=== PATIENT | female | born 1965 | race Caucasian/White ===

== ENCOUNTER 2016-11-04 16:27 | Emergency (ER) | payer OTHER ==
[2016-11-04 17:11] LABS: BASOPHILS % 0.4 (0.0-1.5); MEAN CORPUSCULAR HEMOGLOBIN 31.6 pg (28.0-34.0); MEAN CORPUSCULAR VOLUME 93.2 fl (80.0-100.0); MONOCYTES % 4.8 % (0.0-11.0); NEUTROPHILS # 5.2 # k/uL (1.4-7.7)
--- NOTE | 2016-11-04 17:16 | ED Physician Documentation ---
General Adult - HISTORIAN Historian: patient - HPI Stated Complaint: headache and dizziness Chief Complaint: General Adult Further Comments: yes (51 year old female patient presents with complaints of worse headache of her life for 3 days. Patient states she was in a hot shower 3 days, bent over and has had a severe headache since that time. Patient has used excedrin and "a pain pill" with no relief. Rates pain 10/10, c/o photophobia, denies nausea. Patient concerned she has a aneurysm.) - ROS CONST: no problems EYES/ENT: none CVS/RESP: none GI/: none MS/SKIN/LYMPH: neck pain, joint pain. denies: leg swelling, ankle swelling NEURO/PSYCH: headache, dizziness, anxiety. denies: difficulty walking, difficulty with speech, depression - PAST HX Past History: other (depression, chronic neck pain) Allergies/Adverse Reactions: Allergies Allergy/AdvReac Type Severity Reaction Status Date / Time amoxicillin [Amoxicillin] Allergy Severe Face Verified 11/04/16 16:51 Swelling - SOCIAL HX Smoking History: cigarettes - FAMILY HX Family History: No - REVIEWED ASSESSMENTS Nursing Assessment Reviewed: Yes Vitals Reviewed: Yes Progress - Progress Progress: No UDS available at [facility] at this time. Reviewed CT and lab results with patient and . Reassurance that she did not have tumor or acute bleed. Will treat for migraine with imitrex. Patient sitting up, smiling after Imitrex subq. States she feels much better. ED Results Lab/Radiology - Lab Results Lab Results: Lab Results 11/04/16 17:05 WBC 9.00 K/ul K/ul (4.00-12.00) RBC 5.20 M/ul M/ul (3.90-5.20) Hgb 16.4 g/dL H g/dL (12.0-16.0) Hct 48.4 % H % (34.5-46.5) MCV 93.2 fl fl (80.0-100.0) MCH 31.6 pg pg (28.0-34.0) MCHC 33.9 g/dL g/dL (30.0-36.0) RDW 13.5 % % (11.3-14.3) Plt Count 220 K/mm3 K/mm3 (130-400) Neut % (Auto) 58.2 % % (39.0-79.0) Lymph % (Auto) 34.5 % % (16.0-50.0) Emery % (Auto) 4.8 % % (0.0-11.0) Eos % (Auto) 1.0 % % (0.0-6.8) Baso % (Auto) 0.4 (0.0-1.5) Neut # (Auto) 5.2 # k/uL # k/uL (1.4-7.7) Lymph # (Auto) 3.1 # k/uL # k/uL (0.6-4.0) Emery # (Auto) 0.4 # k/uL # k/uL (0.0-0.9) Eos # (Auto) 0.1 # k/uL # k/uL (0.0-0.6) Baso # (Auto) 0.0 # k/uL # k/uL (0.0-0.5) Reactive Lymphs % 1.1 % % (0.0-5.0) Reactive Lymphs # 0.1 # k/uL # k/uL (0.0-0.8) - Radiology Radiology Impressions: Examination: CT head without contrast History: Headache Comparison exam: None available Technique: Noncontrast head CT protocol. Findings: Ventricles and sulci are appropriate for patient age. Cerebrocerebellar parenchyma demonstrates normal attenuation. No evidence for parenchymal hemorrhage. No evidence for mass or mass effect. No midline shift. No extra axial fluid collections. Partial visualization of the paranasal sinuses , mastoid air cells, orbits, skull and scalp without gross regularity. Streak artifact from dental hardware. Impression: No acute parenchymal process. No hemorrhage. Electronically signed on Nov 04, 2016 5:28:30 PM CDT by: Avery Irene - Orders Orders: ED Orders Category Date Time Status Continuous EKG monitoring Q30M Care 11/04/16 16:43 Ordered Continuous Pulse Oximetry Q30M Care 11/04/16 16:[address] IV Lock 1T Care 11/04/16 16:[address] BRAIN W/O CONTRAST Stat Exams 11/04/16 Ordered CBC/PLATELET/DIFF Stat Lab 11/04/16 16:43 Ordered CMP Stat Lab 11/04/16 16:43 Ordered UA W/MICRO IF INDICATED Stat Lab 11/04/16 16:43 Ordered General Adult Physical Exam - PHYSICAL EXAM GENERAL APPEARANCE: anxious EENT: eye inspection normal, NIMO NECK: normal inspection, stiff neck (tenderness with lateral palpation bilaterally, no midline tenderness. 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
[2016-11-04 17:23] LABS: APPEARANCE,URINE Clear (CLEAR); COLOR,URINE Yellow (YELLOW); OCCULT BLOOD,URINE 2+ (NEGATIVE); UROBILINOGEN URINE 0.2 Eu (0.2-1.0)
[2016-11-04 17:27] LABS: eGFR (African) > 60; eGFR (Non-African) > 60
[2016-11-04 17:31] LABS: AMORPHOUS SEDIMENT,UR FEW (NEGATIVE)
[2016-11-04] MEDS ORDERED: KETOROLAC TROMETHAMINE 30 MG/1ML VIAL IVP ONE (17:50)
[2016-11-04] MEDS ORDERED: SUMAtriptan SUCCINATE 6 MG/0.5 ML VIAL SQ ONE (17:50)
[2016-11-04 18:39] VITALS: BP 127/94
--- NOTE | 2016-11-04 21:02 | Diagnostic Imaging Report ---
SHONDA GRANT (MEÑO) - ER~ [facility] [address] [facility] [address] [place] [address]. [phone] ~ ~ ~ ~ Report Submission Date: Nov 04, 2016 5:28:30 PM CDT Patient ~ Study Name: SITA KIRBY ~ Date: Nov 04, 2016 5:09:39 PM CDT ~ Modality Type: CT\SR Gender: F ~ Description: CT BRAIN W/O CONTRAST : 63 ~ Institution: [facility] Physician: SHONDA GRANT) - [place] ~ ~ ~ ~ Examination: CT head without contrast History: Headache Comparison exam: None available Technique: Noncontrast head CT protocol. Findings: Ventricles and sulci are appropriate for patient age. Cerebrocerebellar parenchyma demonstrates normal attenuation. No evidence for parenchymal hemorrhage. No evidence for mass or mass effect. No midline shift. No extra axial fluid collections. Partial visualization of the paranasal sinuses , mastoid air cells, orbits, skull and scalp without gross regularity. Streak artifact from dental hardware. Impression: No acute parenchymal process. No hemorrhage. ~ Electronically signed on Nov 04, 2016 5:28:30 PM CDT by: Avery HERCULES
== END 2016-11-04 18:36 | disposition home or self-care (01) ==
LOC: ED 16:27
DX: G43.009 Migraine without aura, not intractable, without status migrainosus (principal)
CPT/HCPCS: 70450; 80053; 81002; 85025; J1885; J3030; 96374; 99283; S1016

== ENCOUNTER 2017-10-10 16:01 | Emergency (ER) | payer SELFPAY ==
[2017-10-10] MEDS ORDERED: ORPHENADRINE CITRATE 60 MG/2ML IM ONE (16:14)
[2017-10-10] MEDS ORDERED: KETOROLAC TROMETHAMINE 60 MG/2 ML VIAL IM ONE (16:14)
--- NOTE | 2017-10-10 16:19 | ED Physician Documentation ---
Upper Back Injury/Pain - HISTORIAN Historian: patient, spouse - HPI Stated Complaint: BACK PAIN Chief Complaint: Upper Back Injury/ Pain Additional Information: Patient arrives with spouse to ER with c/o thoracic back pain that started one month ago- [facility] with the last episode being 3 days ago. She states they put her on prednisone but says its not helping. The visit prior they advised her to take Naproxen and Flexeril- she has not taken flexeril as directed. She has not tried to schedule appt. with PCP. She stated that x-rays were done at the [facility] (will have patient sign release and get treatment done at the [facility] Patient is lying supine in bed flat. Onset: other (one month ago) Duration: continues in ED Recent Injury: No Context: other (chronic pain) Where: home (started at home) Other Injuries: denies: neck, head Severity: severe (pt states severe) Quality: sharp Front/Back of Body, Lg (Color): 1 - thoracic pain Associated Symptoms: numbness (to left leg), tingling. denies: fever, chills Exacerbated By: sitting position, movement of trunk Relieved By: nothing - ROS NEURO/PSYCH: denies: difficulty with speech EYES/ENT: none CVS/RESP: none CONST: no problems GI/: denies: nausea, vomiting MS/SKIN/LYMPH: back pain - PAST HX Past History: arthritis, back pain Surgeries/Procedures: back surgery, other (hysterectomy) Allergies/Adverse Reactions: Allergies Allergy/AdvReac Type Severity Reaction Status Date / Time amoxicillin [Amoxicillin] Allergy Severe Face Verified 10/10/17 16:13 Swelling Home Medications: Ambulatory Orders Medication Instructions Recorded Citalopram Hydrobromide 40 mg D 10/10/17 [Citalopram HBr] Cyclobenzaprine HCl [Flexeril] 5 mg PO D 10/10/17 - SOCIAL HX Smoking History: cigarettes, greater than 1 pack/day Alcohol Use: none Drug Use: none - FAMILY HX Family History: none - VITAL SIGNS Vital Signs: Vital Signs Temp Pulse Resp BP Pulse Ox 97.6 F 87 24 158/103 10/10/17 16:08 10/10/17 16:08 10/10/17 16:08 10/10/17 16:08 - REVIEWED ASSESSMENTS Nursing Assessment Reviewed: Yes Vitals Reviewed: Yes Progress - Results/Orders Results/Orders: Patient feeling much better after immunizations and is resting comfortably. She is happy with care and feels that Bucklin will help and will follow up as instructed. ED Results Lab/Radiology - Orders Orders: ED Orders Category Date Time Status Ketorolac Tromethamine [Toradol] Med 10/10/17 16:14 Discontinued 60 mg IM NOW ONE Orphenadrine Citrate [Norflex] Med 10/10/17 16:14 Discontinued 60 mg IM NOW ONE Upper Back Injury Physical Ex - Physical Exam General Appearance: alert, moderate distress EENT: nml ENT inspection Neck: nml inspection, non-tender Back: painless ROM, vertebral point-tendernes Respiratory: breath sounds nml CVS: heart sounds nml, bilateral pulses nml Abdomen: non-tender, nml bowel sounds Skin: warm/dry, normal color Extremities: normal range of motion, no evidence of injury Neuro/Psych: oriented x3, CN's nml as tested, sensation nml Discharge Clincal Impression: Thoracic back pain Referrals: Maritza Monterroso MD [Primary Care Provider] - 2 Days Additional Instructions: Continue with aftercare from [facility] 1. Naproxen 500 mg twice a day 2. Flexeril twice a day for muscle spasm 3. Alternate Heat/Cold 4. Take Bucklin for "Breakthrough Pain" only 5. Call Primary Care Provider Wednesday for follow up 6. Follow up with Ortho spine as instructed by [facility]. Condition: Good Disposition: 01 HOME, SELF-CARE Decision to Admit: NO Decision Time: 17:13
[2017-10-10 17:17] VITALS: BP 137/89
== END 2017-10-10 17:17 | disposition home or self-care (01) ==
LOC: ED 16:01
DX: M54.6 Pain in thoracic spine (principal)
CPT/HCPCS: J1885; J2360; 96372; 99284

== ENCOUNTER 2017-12-22 19:46 | Emergency (ER) | payer OTHER ==
--- NOTE | 2017-12-22 20:14 | ED Physician Documentation ---
General Adult - HISTORIAN Historian: patient, spouse - HPI Stated Complaint: trouble with catheter Chief Complaint: General Adult Onset: hours Timing: still present Further Comments: yes (Pt is a 52 yo female with renal cell cancer on multiple pain meds and chemotherapy med. Pt's indwelling catheter was not draining earlier today. Pt usually has cath changed q 2 weeks by home health nurses. Today home health nurses suspected an infection, and the cath was not draining.) - ROS CONST: no problems EYES/ENT: none CVS/RESP: none GI/: other (difficulties with parry cath) MS/SKIN/LYMPH: none - PAST HX Past History: other (renal cell cancer, depression) Surgeries/Procedures: other (ortho surgery) Allergies/Adverse Reactions: Allergies Allergy/AdvReac Type Severity Reaction Status Date / Time amoxicillin [Amoxicillin] Allergy Severe Face Verified 12/22/17 20:12 Swelling sulfamethoxazole AdvReac Nausea/Vomi Verified 12/22/17 20:12 [From ] ting trimethoprim [From ] AdvReac Nausea/Vomi Verified 12/22/17 20:12 ting Home Medications: Ambulatory Orders Medication Instructions Recorded Cyclobenzaprine HCl [Flexeril] 5 mg PO D 10/10/17 Ciprofloxacin HCl [Cipro] 500 mg PO BID #20 tablet 12/22/17 Dronabinol [Marinol] 2.5 mg PO PRN PRN 12/22/17 Morphine Sulfate [Morphine Sulfate 10 mg PO Q3 PRN 12/22/17 ER] fentaNYL 12 MCG [Duragesic] 1 each TD Q72 MDD 75mcg 12/22/17 - SOCIAL HX Smoking History: cigarettes - FAMILY HX Family History: No (unk) - VITAL SIGNS Vital Signs: Vital Signs Temp Pulse Resp BP Pulse Ox 137/89 10/10/17 17:15 - REVIEWED ASSESSMENTS Nursing Assessment Reviewed: Yes Vitals Reviewed: Yes Progress - Progress Progress: change parry cath (to larger bore cath) UTI Rx Ciprofloxaxin 500 mg. Take one every 12 hours for 10 days. 1st dose in ER Follow up primary provider. General Adult Physical Exam - PHYSICAL EXAM GENERAL APPEARANCE: mild distress EENT: pharynx normal NECK: normal inspection, supple RESPIRATORY: no resp distress, chest non-tender, breath sounds normal CVS: reg rate & rhythm, heart sounds normal ABDOMEN: soft, no organomegaly, normal bowel sounds BACK: normal inspection, no CVA tenderness SKIN: warm/dry, normal color EXTREMITIES: non-tender, no evidence of injury NEURO: oriented X3, motor nml, sensation nml Discharge Clincal Impression: UTI, catheter problem Prescriptions: Ciprofloxacin HCl [Cipro] 500 mg PO BID #20 tablet Referrals: Maritza Monterroso MD [Primary Care Provider] - Condition: Stable Disposition: 01 HOME, SELF-CARE Decision to Admit: NO Decision Time: 22:28
[2017-12-22] MEDS: CIPROFLOXACIN HCL 500 MG TABLET PO ONE (22:30)
[2017-12-22] MEDS: LEVOFLOXACIN 500 MG TABLET ONE (22:31)
[2017-12-22] MEDS: LEVOFLOXACIN 500 MG TABLET PO ONE (22:31)
[2017-12-22 22:37] VITALS: BP 134/71
[2017-12-23 08:33] LABS: APPEARANCE,URINE CLOUDY (CLEAR); COLOR,URINE YELLOW (YELLOW)
[2017-12-23 08:34] LABS: OCCULT BLOOD,URINE 3+ (NEGATIVE); PH URINE 7.5 (5.0 - 8.0); UROBILINOGEN URINE 0.2 Eu (0.2-1.0)
== END 2017-12-22 22:36 | disposition home or self-care (01) ==
LOC: ED 19:46
DX: N39.0 Urinary tract infection, site not specified (principal); T83.018A Breakdown (mechanical) of other urinary catheter, initial encounter; X58.XXXA Exposure to other specified factors, initial encounter; Y92.9 Unspecified place or not applicable; Y93.9 Activity, unspecified; Y99.9 Unspecified external cause status
CPT/HCPCS: 51702; 81002; 87086; 99284; J7030

== ENCOUNTER 2018-03-09 13:56 | Emergency (ER) | payer OTHER ==
[2018-03-09 14:14] VITALS: BP 145/95
[2018-03-09] MEDS: 0.9 % SODIUM CHLORIDE 1,000 ML IV ONE (14:15)
[2018-03-09] MEDS: PROMETHAZINE HCL 25 MG in 0.9 % SODIUM CHLORIDE 50 ML IV ONE (14:15)
--- NOTE | 2018-03-09 14:30 | ED Physician Documentation ---
General Adult - HISTORIAN Historian: patient, spouse - HPI Stated Complaint: Emesis Chief Complaint: General Adult Additional Information: Patient with advanced r4enal cell cancer says she has been vomiting several times a day for 2-4 months. Started Votrient for RCC [address] Najera, [facility] oncology, 2 weeks ago and she was prescribed oral liquid for acid reflux. Has zofran tabs at home that do nto help her nausea. She has been retching and vomiting several times a day for the last two street. Last normal bowel movement yesterday or today. Says she hasn't eaten more than a half sandwich a day for months. Comes to ER in hopes we can stop vomiting. She is not sure when she is to see Dr. Najera again. No fever. Indwelling parry catheter. Has not been taking Marinol tabs for 2-3 months as they made her hungry; the more she ate, the more she threw up. No other modifying factors or associated events. - ROS CONST: denies: fever - PAST HX Past History: other (RCC) Surgeries/Procedures: hysterectomy, other (orthopedic; resection spinal cord tumor) Allergies/Adverse Reactions: Allergies Allergy/AdvReac Type Severity Reaction Status Date / Time amoxicillin [Amoxicillin] Allergy Severe Face Verified 03/09/18 14:15 Swelling sulfamethoxazole AdvReac Nausea/Vomi Verified 03/09/18 14:15 [From ] ting trimethoprim [From ] AdvReac Nausea/Vomi Verified 03/09/18 14:15 ting Home Medications: Ambulatory Orders Medication Instructions Recorded Cyclobenzaprine HCl [Flexeril] 5 mg PO D 10/10/17 Morphine Sulfate [Morphine Sulfate 10 mg PO Q3 PRN 12/22/17 ER] fentaNYL 12 MCG [Duragesic] 1 each TD Q72 MDD 75mcg 12/22/17 - SOCIAL HX Smoking History: cigarettes - FAMILY HX Family History: No - VITAL SIGNS Vital Signs: Vital Signs Temp Pulse Resp BP Pulse Ox 96.8 F L 98 H 15 145/95 96 03/09/18 14:05 03/09/18 14:05 03/09/18 14:05 03/09/18 14:05 03/09/18 14:05 - REVIEWED ASSESSMENTS Nursing Assessment Reviewed: Yes Vitals Reviewed: Yes Progress - Progress Progress: Report Submission Date: Mar 09, 2018 4:16:47 PM CDT Patient Study Name: SITA MEIER Date: Mar 09, 2018 3:33:24 PM CDT Modality Type: DX Gender: F Description: CHEST : 63 Institution: [facility] Physician: RUSTY LOVE - ER Chest, AP portable History: Vomiting, history of renal cell carcinoma. Findings: Rods and screws fused the upper thoracic spine. There is no infiltrate, effusion or pneumothorax. Heart size, mediastinum and pulmonary vascularity are normal. Impression: No active pulmonary disease. Electronically signed on Mar 09, 2018 4:16:47 PM CDT by: Miles Palma K+3.0. Given 40 meq KCl po in ER. Has been soundly asleep for nearly an hour. Will send home with po potassium and phenergan. Follow up with Dr. Najera. ED Results Lab/Radiology - Orders Orders: ED Orders Category Date Time Status Place IV Lock 1T Care 03/09/18 14:11 Ordered CHEST 2VIEW [RAD] Stat Exams 03/09/18 Ordered CBC/PLATELET/DIFF Routine Lab 03/09/18 Ordered CMP Routine Lab 03/09/18 Ordered URINALYSIS Routine Lab 03/09/18 Ordered NORMAL SALINE @ 500 MLS/HR ( 1000ml BOLUS) Med 03/09/18 14:11 Ordered 0.9 % Sodium Chloride [Normal Saline] 1,000 ml IV Q2H Promethazine HCl [Phenergan] Med 03/09/18 14:19 Discontinued 25 mg .ROUTE .STK-MED ONE Promethazine HCl [Phenergan] 25 mg Med 03/09/18 14:11 Ordered 0.9 % Sodium Chloride [Sodium Chloride] 50 ml IV NOW General Adult Physical Exam - PHYSICAL EXAM GENERAL APPEARANCE: appears, tired, uneasy EENT: eye inspection normal, ENT inspection normal, other (mouth and oropharynx dry) NECK: normal inspection, supple RESPIRATORY: no resp distress, other (wet cough, smells of tobacco) CVS: reg rate & rhythm, heart sounds normal ABDOMEN: soft, normal bowel sounds, no distension, other (indwelling parry with clear yellow urine in tubing) BACK: normal inspection SKIN: warm/dry, pallor EXTREMITIES: no evidence of injury NEURO: CN's nml as tested, motor nml, sensation nml Discharge Clincal Impression: Hypokalemia Nausea & vomiting Qualifiers: Vomiting type: unspecified Vomiting Intractability: non-intractable Qualified Code(s): R11.2 - Nausea with vomiting, unspecified Referrals: Maritza Monterroso MD [Primary Care Provider] - 2 Days Condition: Fair Disposition: 01 HOME, SELF-CARE Decision to Admit: NO Decision Time: 16:24
[2018-03-09 14:56] LABS: MEAN CORPUSCULAR HEMOGLOBIN 30.2 pg (28.0-34.0)
[2018-03-09 14:57] LABS: BASOPHILS % 0.3 (0.0-1.5); EOSINOPHILS % 1.4 % (0.0-6.8); MONOCYTES % 6.2 % (0.0-11.0); NEUTROPHILS # 5.4 # k/uL (1.4-7.7)
[2018-03-09] MEDS: 0.9 % SODIUM CHLORIDE 100 ML IV ONE (15:02)
[2018-03-09] MEDS: PROMETHAZINE HCL 25 MG/ML VIAL ONE (15:02)
[2018-03-09 15:34] LABS: eGFR (Non-African) > 60
[2018-03-09] MEDS: POTASSIUM CHLORIDE 20 MEQ TABLET.ER PO ONE (15:47)
[2018-03-09 16:21] LABS: APPEARANCE,URINE CLOUDY (CLEAR); COLOR,URINE YELLOW (YELLOW)
[2018-03-09 16:22] LABS: OCCULT BLOOD,URINE 2+ (NEGATIVE); PH URINE 8.5 (5.0 - 8.0); UROBILINOGEN URINE 0.2 Eu (0.2-1.0)
--- NOTE | 2018-03-09 19:43 | Diagnostic Imaging Report ---
RUSTY LOVE [facility] [address] [facility] [address] [place] [address]. [phone] Report Submission Date: Mar 09, 2018 4:16:47 PM CDT Patient Study Name: SITA MEIER Date: Mar 09, 2018 3:33:24 PM CDT Modality Type: DX Gender: F Description: CHEST : 63 Institution: [facility] Physician: RUSTY LOVE Chest, AP portable History: Vomiting, history of renal cell carcinoma. Findings: Rods and screws fused the upper thoracic spine. There is no infiltrate, effusion or pneumothorax. Heart size, mediastinum and pulmonary vascularity are normal. Impression: No active pulmonary disease. Electronically signed on Mar 09, 2018 4:16:47 PM CDT by: Miles HERCULES
== END 2018-03-09 17:14 | disposition home or self-care (01) ==
LOC: ED 13:56
DX: C64.9 Malignant neoplasm of unspecified kidney, except renal pelvis (principal); R11.2 Nausea with vomiting, unspecified; E87.6 Hypokalemia
CPT/HCPCS: 71045; 80053; 81002; 85025; 87086; 87186; A9270; J2550; J7030; 96365; 96366; 96375; 99284; S1016

== ENCOUNTER 2018-04-24 17:32 | Emergency (ER) | payer OTHER ==
--- NOTE | 2018-04-24 17:39 | ED Physician Documentation ---
General Adult - HISTORIAN Historian: patient - HPI Stated Complaint: pain Chief Complaint: General Adult Onset: other (metastatic renal cell cancer ) Timing: still present, worse Severity: severe Further Comments: yes (She has renal cell cancer that has mets to bone, brain and multiple other places per pt. Her states she has been taking 4 of her pain meds not 2 as prescribed. She states she has pain in her legs and pelvic area and then all over. She has a burn on her left hip from a heating pad. She has anxiety but she states she does not want to take her xanax as prescribed due to sleeping "I dont want to sleep my life away" She denies any loss of control of bowel howevr she does have a parry cath. She has pain in the lower pelvic/vaginal area.) Last known Well Code/Unknown Code: Unknown - ROS CONST: no problems - PAST HX Past History: other (renal cell mets ) Immunizations: UTD Allergies/Adverse Reactions: Allergies Allergy/AdvReac Type Severity Reaction Status Date / Time amoxicillin [Amoxicillin] Allergy Severe Face Verified 03/09/18 14:15 Swelling sulfamethoxazole AdvReac Nausea/Vomi Verified 03/09/18 14:15 [From Septra] ting trimethoprim [From Janra] AdvReac Nausea/Vomi Verified 03/09/18 14:15 ting Home Medications: Ambulatory Orders Medication Instructions Recorded Cyclobenzaprine HCl [Flexeril] 5 mg PO D 10/10/17 Morphine Sulfate [Morphine Sulfate 10 mg PO Q3 PRN 12/22/17 ER] fentaNYL 12 MCG [Duragesic] 1 each TD Q72 MDD 75mcg 12/22/17 Potassium Chloride [Klor-Con M10] 10 meq PO DAILY #30 tab.er.prt 03/09/18 Promethazine HCl [Phenergan] 25 mg PO Q6 PRN #30 tablet 03/09/18 - SOCIAL HX Smoking History: non-smoker Alcohol Use: none Drug Use: none - FAMILY HX Family History: No - VITAL SIGNS Vital Signs: Vital Signs Temp Pulse Resp BP Pulse Ox 145/95 03/09/18 17:14 - REVIEWED ASSESSMENTS Nursing Assessment Reviewed: Yes Vitals Reviewed: Yes Progress - Progress Progress: 1837: Post morphine - overall body pain is "maybe improved". Discussed possibly admitting due to pain control. Discussed case with Dr Mario booker and he does not admit but the Internal med will possibly admit for pain control. Pt wants to stay at [facility] for admission and care of PCP. Dr Siddiqi notified and is agreeable to admission for pain control. Pt and spouse want to await test results for possible admission or transfer DG 1845: Pain is much improved per pt and she is resting in between questions. DG 1919: Discussion of results thus far and they are wanting to await all results. DG 2009: Discussion of results and she is feeling decreased pain. She is requesting to just go home. No admission and no transfer DG 2044: prednisone 10 mg given due to no decadron in pharmacy and needing medication prior to the pharmacy opening DG ED Results Lab/Radiology - Radiology Radiology Impressions: CT lumbar spine Date of examination: April 24, 2018. CLINICAL HISTORY: Pt states lower back pain and abdomen. Pt has renal cancer, currently in chemotherapy. (Hx) / ITS.REASON Pain TECHNIQUE: 2.5 mm contiguous axial images of the lumbar spine with sagittal and coronal reconstructions. FINDINGS: T11-L1 posterior transpedicular fusion rods and screws are present. There is a chronic fracture of T12. The sagittal and coronal reconstructions confirm normal lumbar spine alignment without evidence of acute fracture or subluxation. Degenerative disc bulging and bilateral degenerative facet joint hypertrophy create severe stenosis at L4/L5. The lumbar spine posterior elements are intact and the facets are in appropriate relationship bilaterally. Bilateral pleural effusions and numerous bilateral lower lobe lung masses are present. There is a left renal mass and dilated calyces or hydronephrosis. The sigmoid colon and rectum are filled with stool. An expansile lytic mass is present involving the left superior pubic ramus and pubic symphysis. Lytic lesions presume are represent metastases are present involving L3 and L5. There are bilateral lytic pelvic metastases. A lytic lesion of the right humeral head is there is a healing fracture of the left inferior pubic ramus. IMPRESSION: Numerous lytic bone lesions throughout the spine and pelvis including the right hip most consistent with metastases. L4/L5 severe spinal canal stenosis. Bilateral pleural effusions and numerous bilateral lower lobe lung masses. Left renal mass and dilated calyces or hydronephrosis. Electronically signed on Apr 24, 2018 7:55:21 PM MOLD BREAKER by: Pedro Turner CT abdomen and pelvis with contrast CLINICAL HISTORY: Pt states lower back pain and abdomen. Pt has renal cancer, currently in chemotherapy. (Hx) / ITS.REASON Pain Kidney CA leg pain and weakness TECHNIQUE: 5 mm contiguous axial images of the abdomen and pelvis with IV contrast. With; 94 CC OMNIPAQUE FINDINGS: There are bilateral pleural effusions and bibasal atelectasis, righter on the right. Pulmonary metastases are noted. The liver, spleen, adrenal glands and, gallbladder and right kidney are unremark able apart from nonobstructing right kidney stones are the gallbladder is nondistended. There is a large infiltrate left renal mass measuring 6.5 x 6.1 cm. The main renal vein appears patent. There is ectasia of the infrarenal abdominal aorta with mural thrombus measuring up to 3.1 cm. The bowel loops are nondistended. There is osseous metastatic disease. A large metastasis in the left ischium measures 6.2 cm. Additional metastasis in the left iliac wing measures 4.6 cm. IMPRESSION: 1. Large left renal mass with metastases the lungs and bones. Large left pelvic bone metastases are noted. 2. No small bowel obstruction or ascites. Electronically signed on Apr 24, 2018 8:05:34 PM MOLD BREAKER by: Joey Anderson General Adult Physical Exam - PHYSICAL EXAM GENERAL APPEARANCE: no distress EENT: eye inspection normal, no signs of dehydration NECK: normal inspection RESPIRATORY: no resp distress, chest non-tender CVS: reg rate & rhythm, heart sounds normal, no murmur ABDOMEN: soft, no distension, tenderness (lower abdomen /pelvic area ) BACK: normal inspection SKIN: warm/dry, other (left hip with 2nd degree burn with healing crusts approx 3 cm and 1 cm area. ) EXTREMITIES: edema (2+ pitting lower ) NEURO: oriented X3 Discharge Clincal Impression: Pain Metastatic renal cell carcinoma Qualifiers: Laterality: unspecified laterality Qualified Code(s): C64.9 - Malignant neoplasm of unspecified kidney, except renal pelvis Referrals: Maritza Monterroso MD [Primary Care Provider] - 2 Days Comments: 1. Dexamethasone 8 mg take at [address] in am at appt in am 3. Return to ER for any pain or other concerns Did not want admission or transfer DG Condition: Poor Disposition: 07 AGAINST MEDICAL ADVICE Decision to Admit: NO Date of Decison to Admit: 04/24/18 Decision Time: 20:19
[2018-04-24] MEDS ORDERED: DEXAMETHASONE SOD PHOS 4 MG/ML VIAL IVP ONE (17:58)
[2018-04-24] MEDS ORDERED: MORPHINE SULFATE 4 MG/ML PREFILLED SYR IVP ONE ×2 (18:25→18:36)
[2018-04-24] MEDS ORDERED: 0.9 % SODIUM CHLORIDE 1,000 ML IV SCH (18:30)
[2018-04-24] MEDS ORDERED: 0.9 % SODIUM CHLORIDE 1,000 ML IV ONE (18:34)
[2018-04-24] MEDS ORDERED: MORPHINE SULFATE 10 MG/ML VIAL ONE (18:39)
[2018-04-24] MEDS ORDERED: DEXAMETHASONE 4 MG TABLET PO ONE (20:17)
[2018-04-24] MEDS ORDERED: PHARMACY KEY 1 EACH EACH MC ONE (20:34)
[2018-04-24] MEDS ORDERED: predniSONE 10 MG TABLET PO ONE (20:44)
[2018-04-24 22:04] VITALS: BP 121/63
--- NOTE | 2018-04-25 06:42 | Diagnostic Imaging Report ---
RENARD ROBERT [facility] [address] [facility] [address] [place], [place]. [address] Report Submission Date: Apr 24, 2018 7:55:21 PM FREEZER TUNNEL OPERATOR Patient Study Name: SITA MEIER Date: Apr 24, 2018 7:21:15 PM FREEZER TUNNEL OPERATOR Modality Type: CT\SR Gender: F Description: CT L-SPINE W/O CONTRAS : 63 Institution: [facility] Physician: ERNARD ROBERT CT lumbar spine Date of examination: April 24, 2018. CLINICAL HISTORY: Pt states lower back pain and abdomen. Pt has renal cancer, currently in chemotherapy. (Hx) / ITS.REASON Pain TECHNIQUE: 2.5 mm contiguous axial images of the lumbar spine with sagittal and coronal reconstructions. FINDINGS: T11-L1 posterior transpedicular fusion rods and screws are present. There is a chronic fracture of T12. The sagittal and coronal reconstructions confirm normal lumbar spine alignment without evidence of acute fracture or subluxation. Degenerative disc bulging and bilateral degenerative facet joint hypertrophy create severe stenosis at L4/L5. The lumbar spine posterior elements are intact and the facets are in appropriate relationship bilaterally. Bilateral pleural effusions and numerous bilateral lower lobe lung masses are present. There is a left renal mass and dilated calyces or hydronephrosis. The sigmoid colon and rectum are filled with stool. An expansile lytic mass is present involving the left superior pubic ramus and pubic symphysis. Lytic lesions presume are represent metastases are present involving L3 and L5. There are bilateral lytic pelvic metastases. A lytic lesion of the right humeral head is there is a healing fracture of the left inferior pubic ramus. IMPRESSION: Numerous lytic bone lesions throughout the spine and pelvis including the right hip most consistent with metastases. L4/L5 severe spinal canal stenosis. Bilateral pleural effusions and numerous bilateral lower lobe lung masses. Left renal mass and dilated calyces or hydronephrosis. Electronically signed on Apr 24, 2018 7:55:21 PM FREEZER TUNNEL OPERATOR by: Pedro HERCULES
--- NOTE | 2018-04-25 06:43 | Diagnostic Imaging Report ---
RENARD ROBERT [facility] [address] [facility] [address] [place], [place]. [address] Report Submission Date: Apr 24, 2018 8:05:34 PM CRUSHER TENDER Patient Study Name: SITA MEIER Date: Apr 24, 2018 7:12:45 PM CRUSHER TENDER Modality Type: CT\SR Gender: F Description: CT ABD PELVIS W/ CON : 63 Institution: [facility] Physician: RENARD ROBERT CT abdomen and pelvis with contrast CLINICAL HISTORY: Pt states lower back pain and abdomen. Pt has renal cancer, currently in chemotherapy. (Hx) / ITS.REASON Pain Kidney CA leg pain and weakness TECHNIQUE: 5 mm contiguous axial images of the abdomen and pelvis with IV contrast. With; 94 CC OMNIPAQUE FINDINGS: There are bilateral pleural effusions and bibasal atelectasis, righter on the right. Pulmonary metastases are noted. The liver, spleen, adrenal glands and, gallbladder and right kidney are unremarkable apart from nonobstructing right kidney stones are the gallbladder is nondistended. There is a large infiltrate left renal mass measuring 6.5 x 6.1 cm. The main renal vein appears patent. There is ectasia of the infrarenal abdominal aorta with mural thrombus measuring up to 3.1 cm. The bowel loops are nondistended. There is osseous metastatic disease. A large metastasis in the left ischium measures 6.2 cm. Additional metastasis in the left iliac wing measures 4.6 cm. IMPRESSION: 1. Large left renal mass with metastases the lungs and bones. Large left pelvic bone metastases are noted. 2. No small bowel obstruction or ascites. Electronically signed on Apr 24, 2018 8:05:34 PM CRUSHER TENDER by: Joey HERCULES
[2018-04-25 08:19] LABS: BASOPHILS % 0.2 (0.0-1.5); EOSINOPHILS % 2.1 % (0.0-6.8); MEAN CORPUSCULAR HEMOGLOBIN 29.8 pg (28.0-34.0); MONOCYTES % 4.5 % (0.0-11.0); NEUTROPHILS # 8.1 # k/uL (1.4-7.7)
[2018-04-25 08:20] LABS: eGFR (Non-African) > 60
[2018-04-25 09:05] LABS: APPEARANCE,URINE CLEAR (CLEAR); COLOR,URINE YELLOW (YELLOW); OCCULT BLOOD,URINE NEGATIVE (NEGATIVE)
== END 2018-04-24 20:57 | disposition left against medical advice (07) ==
LOC: ED 17:32
DX: C64.9 Malignant neoplasm of unspecified kidney, except renal pelvis (principal)
CPT/HCPCS: 72131; 74177; 80053; 81002; 85025; J1100; J2270; J7030; J7512; 96374; 99283; 99284; Q9967; S1016

== ENCOUNTER 2018-05-29 17:42 | Observation (INO) | payer OTHER ==
[2018-05-29] MEDS ORDERED: ONDANSETRON HCL/PF 4 MG/ 2ML VIAL IVP ONE (18:17)
--- NOTE | 2018-05-29 18:17 | ED Physician Documentation ---
General Adult - HISTORIAN Historian: patient - HPI Stated Complaint: nausea, shortness of breath, urinary pain Chief Complaint: General Adult Additional Information: Patient with past medical history of Stage IV renal cancer with mets to bone, lung and brain, currently undergoing chemo therapy, present to ED with nausea, vomiting, bladder pain, low parry catheter output and shortness of breath x 2 days. Patient states she thinks she may have a urinary tract infection. She states she is on chemo therapy and her last chemo was last week. Onset: hours, days ago (2) Timing: still present - ROS CONST: no problems CVS/RESP: shortness of breath GI/: vomiting, nausea MS/SKIN/LYMPH: none. denies: calf pain, leg swelling NEURO/PSYCH: denies: headache, dizziness - PAST HX Past History: other (renal cell carcinoma) Other History: none Surgeries/Procedures: none Allergies/Adverse Reactions: Allergies Allergy/AdvReac Type Severity Reaction Status Date / Time amoxicillin [Amoxicillin] Allergy Severe Face Verified 05/29/18 19:50 Swelling sulfamethoxazole AdvReac Nausea/Vomi Verified 04/28/18 17:45 [From ] ting trimethoprim [From ] AdvReac Nausea/Vomi Verified 04/28/18 17:45 ting Home Medications: Ambulatory Orders Medication Instructions Recorded Cyclobenzaprine HCl [Flexeril] 5 mg PO D 10/10/17 Morphine Sulfate [Morphine Sulfate 10 mg PO Q3 PRN 12/22/17 ER] fentaNYL 12 MCG [Duragesic] 1 each TD Q72 MDD 75mcg 12/22/17 Promethazine HCl [Phenergan] 25 mg PO Q6 PRN #30 tablet 03/09/18 Alprazolam [Xanax] 0.25 mg PO TID PRN 04/28/18 Furosemide [Lasix] 20 mg PO DAILY PRN 04/28/18 Gabapentin [Neurontin] 300 mg PO HS 04/28/18 Omeprazole 40 mg PO 717 04/28/18 Ondansetron HCl Rapdis [Zofran Odt] 4 mg PO Q4H PRN 04/28/18 Oxybutynin Chloride [Ditropan] 5 mg PO TID 04/28/18 Potassium Chloride [Klor-Con 10] 10 meq PO DAILY PRN 04/28/18 Rivaroxaban [Xarelto] 10 mg PO 1700 04/28/18 Azithromycin [Zithromax] 250 mg PO DAILY #6 tablet 04/30/18 Levofloxacin [Levaquin] 500 mg PO DAILY #10 tablet 04/30/18 Methylprednisolone [Medrol] 4 mg PO DIRECTED #21 tab.ds.pk 04/30/18 - SOCIAL HX Smoking History: non-smoker Alcohol Use: none Drug Use: none - FAMILY HX Family History: No - VITAL SIGNS Vital Signs: Vital Signs Temp Pulse Resp BP Pulse Ox 114/59 04/30/18 09:49 - REVIEWED ASSESSMENTS Nursing Assessment Reviewed: Yes Vitals Reviewed: Yes Progress - Results/Orders Results/Orders: HISTORY: 53-year-old female with swelling and ankles COMPARISON: 04/28/2018 TECHNIQUE: Single portable AP view of the chest was performed. FINDINGS: Postoperative changes of thoracic and thoracolumbar posterior spinal fusion are re-identified. There is a new right chest Port-A-Cath with its tip in the right atrium. There are irregular patchy and nodular opacities scattered throughout both lungs, similar to that seen previously. No pneumothorax. The heart is borderline enlarged. IMPRESSION: Patchy nodular opacities scattered throughout both lungs re-identified, essentially stable versus chest x-ray dated 04/28/2018. History on previous CT scan of the lumbar spine details that the patient has a history of renal cancer. The nodular opacities seen in the bilateral lungs are presumably metastatic lesions. Electronically signed on May 29, 2018 8:12:55 PM CHUCKING MACHINE SET UP OPERATOR by: Luis Fernando Trevizo - Progress Progress: 1999 Patient resting comfortably. Discussed admission for observation. Patient agrees with plan. ED Results Lab/Radiology - Radiology Radiology Impressions: HISTORY: 53-year-old female with swelling and ankles COMPARISON: 04/28/2018 TECHNIQUE: Single portable AP view of the chest was performed. FINDINGS: Postoperative changes of thoracic and thoracolumbar posterior spinal fusion are re-identified. There is a new right chest Port-A-Cath with its tip in the right atrium. There are irregular patchy and nodular opacities scattered throughout both lungs, similar to that seen previously. No pneumothorax. The heart is borderline enlarged. IMPRESSION: Patchy nodular opacities scattered throughout both lungs re-identified, essentially stable versus chest x-ray dated 04/28/2018. History on previous CT scan of the lumbar spine details that the patient has a history of renal cancer. The nodular opacities seen in the bilateral lungs are presumably metastatic lesions. Electronically signed on May 29, 2018 8:12:55 PM CHUCKING MACHINE SET UP OPERATOR by: Luis Fernando Trevizo - Orders Orders: ED Orders Category Date Time Status CHEST 2VIEW [RAD] Stat Exams 05/29/18 Ordered CBC/PLATELET/DIFF Routine Lab 05/29/18 Ordered CMP Routine Lab 05/29/18 Ordered UA W/MICRO IF INDICATED Routine Lab 05/29/18 18:16 Ordered General Adult Physical Exam - PHYSICAL EXAM GENERAL APPEARANCE: ill appearing EENT: NIMO NECK: supple RESPIRATORY: no resp distress, other (markedly diminished breath sounds bilaterally) ABDOMEN: soft, normal bowel sounds, other (suprapubic tenderness) BACK: no CVA tenderness SKIN: warm/dry EXTREMITIES: no edema NEURO: oriented X3, motor nml Discharge Clincal Impression: Hypokalemia Metastatic renal cell carcinoma Qualifiers: Laterality: unspecified laterality Qualified Code(s): C64.9 - Malignant neoplasm of unspecified kidney, except renal pelvis UTI (urinary tract infection) Qualifiers: Urinary tract infection type: acute cystitis Hematuria presence: without hematuria Qualified Code(s): N30.00 - Acute cystitis without hematuria Referrals: Maritza Monterroso MD [Primary Care Provider] - 2 Days Condition: Fair Disposition: 02 XFER SHT-TRM HOSP Decision to Admit: [id number] Date of Decison to Admit: 05/29/18 Decision Time: 20:37
[2018-05-29] MEDS ORDERED: 0.9 % SODIUM CHLORIDE 1,000 ML IV ONE (18:37)
[2018-05-29] MEDS ORDERED: POTASSIUM CHLORIDE 40 MEQ/NS 1,000 ML IV SCH (19:30)
[2018-05-29] MEDS ORDERED: POTASSIUM CHLORIDE 40 MEQ/NS 1,000 ML IV ONE (20:27)
[2018-05-29] MEDS ORDERED: CIPROFLOXACIN/D5W 200 ML IV ONE (21:08)
[2018-05-29] MEDS: CIPROFLOXACIN/D5W 400 MG in PREMIX BAG 1 BAG IV SCH ×2 (21:12→21:16)
[2018-05-29] MEDS ORDERED: IPRATROPIUM/ALBUTEROL SULFATE 3 ML AMPUL.NEB NEB PRN (22:37)
[2018-05-29] MEDS ORDERED: ONDANSETRON HCL/PF 4 MG/ 2ML VIAL IVP PRN (22:42)
[2018-05-29 22:43] VITALS: BMI 30.7
[2018-05-29] MEDS ORDERED: MAGNESIUM HYDROXIDE 2,400 MG/30 ML UDC PO PRN (22:46)
[2018-05-29] MEDS ORDERED: ALPRAZOLAM 0.5 MG TABLET PO PRN (22:46)
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
[2018-05-29] MEDS ORDERED: RIVAROXABAN 10 MG TABLET PO SCH (23:00)
[2018-05-29] MEDS ORDERED: BACLOFEN 10 MG TABLET PO SCH (23:00)
[2018-05-29] MEDS: DOCUSATE SODIUM 100 MG CAPSULE PO SCH (23:13)
[2018-05-29] MEDS: levETIRAcetam 500 MG TABLET PO SCH (23:14)
[2018-05-29] MEDS: PANTOPRAZOLE SODIUM 40 MG TABLET.DR PO SCH (23:14)
--- NOTE | 2018-05-29 23:20 | Diagnostic Imaging Report ---
PEEWEE KNOTT [facility] [address] [facility] [address] [place], [place]. [address] Report Submission Date: May 29, 2018 8:12:55 PM SET UP AND LAY OUT INSPECTOR Patient Study Name: SITA MEIER Date: May 29, 2018 7:28:16 PM SET UP AND LAY OUT INSPECTOR Modality Type: DX Gender: F Description: CHEST : 63 Institution: [facility] Physician: PEEWEE KNOTT HISTORY: 53-year-old female with swelling and ankles COMPARISON: 04/28/2018 TECHNIQUE: Single portable AP view of the chest was performed. FINDINGS: Postoperative changes of thoracic and thoracolumbar posterior spinal fusion are re-identified. There is a new right chest Port-A-Cath with its tip in the right atrium. There are irregular patchy and nodular opacities scattered throughout both lungs, similar to that seen previously. No pneumothorax. The heart is borderline enlarged. IMPRESSION: Patchy nodular opacities scattered throughout both lungs re-identified, essentially stable versus chest x-ray dated 04/28/2018. History on previous CT scan of the lumbar spine details that the patient has a history of renal cancer. The nodular opacities seen in the bilateral lungs are presumably metastatic lesions. Electronically signed on May 29, 2018 8:12:55 PM SET UP AND LAY OUT INSPECTOR by: Luis Fernando HERCULES
[2018-05-30] MEDS: POTASSIUM CHLORIDE 40 MEQ/NS 1,000 ML IV SCH ×3 (02:32→11:32)
[2018-05-30 07:47] LABS: eGFR (Non-African) > 60
[2018-05-30 08:10] VITALS: BP 117/53
[2018-05-30] MEDS ORDERED: CIPROFLOXACIN/D5W 200 ML IV ONE (08:25)
[2018-05-30] MEDS: CIPROFLOXACIN/D5W 400 MG in PREMIX BAG 1 BAG IV SCH (09:00)
[2018-05-30] MEDS ORDERED: guaiFENesin 600 MG TAB.ER.12H PO SCH (09:00)
[2018-05-30] MEDS: levETIRAcetam 500 MG TABLET PO SCH ×2 (09:00→09:08)
[2018-05-30] MEDS: PANTOPRAZOLE SODIUM 40 MG TABLET.DR PO SCH (09:00)
[2018-05-30] MEDS: DOCUSATE SODIUM 100 MG CAPSULE PO SCH (09:00)
[2018-05-30 09:16] LABS: APPEARANCE,URINE CLEAR (CLEAR); COLOR,URINE YELLOW (YELLOW)
[2018-05-30 09:17] LABS: OCCULT BLOOD,URINE 2+ (NEGATIVE)
[2018-05-30 09:24] LABS: MEAN CORPUSCULAR HEMOGLOBIN 27.6 pg (28.0-34.0); eGFR (Non-African) > 60
[2018-05-30 09:25] LABS: BASOPHILS % 0.2 (0.0-1.5); EOSINOPHILS % 2.4 % (0.0-6.8); MONOCYTES % 4.4 % (0.0-11.0); NEUTROPHILS # 5.7 # k/uL (1.4-7.7)
[2018-05-30] MEDS ORDERED: HEPARIN SODIUM PORCINE IR ONE (10:59)
[2018-05-30] MEDS ORDERED: BACITRACIN 50,000 UNIT VIAL ONE (10:59)
[2018-05-30] MEDS ORDERED: 0.9 % SODIUM CHLORIDE 1,000 ML IV ONE (10:59)
[2018-05-30] MEDS ORDERED: THROMBIN (RECOMBINANT) 20,000 UNIT VIAL TP ONE (10:59)
[2018-05-30] MEDS ORDERED: PANTOPRAZOLE SODIUM 40 MG TABLET.DR PO SCH (17:00)
[2018-05-30] MEDS ORDERED: GABAPENTIN 300 MG CAPSULE PO SCH (21:00)
--- NOTE | 2018-05-30 22:44 | Discharge Summary ---
Discharge Summary - Discharge Sumary History of Present Illness: Patient admitted through the ER with hypokalemia and UTI. Condition at Discharge: Stable Home Medications: Ambulatory Orders Medication Instructions Recorded fentaNYL 12 MCG [Duragesic] 1 each TD Q72 MDD 75mcg 12/22/17 Promethazine HCl [Phenergan] 25 mg PO Q6 PRN #30 tablet 03/09/18 Alprazolam [Xanax] 0.25 mg PO TID PRN 04/28/18 Furosemide [Lasix] 20 mg PO DAILY PRN 04/28/18 Gabapentin [Neurontin] 300 mg PO HS 04/28/18 Ondansetron HCl Rapdis [Zofran Odt] 4 mg PO Q4H PRN 04/28/18 Potassium Chloride [Klor-Con 10] 10 meq PO DAILY PRN 04/28/18 Rivaroxaban [Xarelto] 10 mg PO 1700 04/28/18 Azithromycin [Zithromax] 250 mg PO DAILY #6 tablet 04/30/18 Albuterol Sulfate [Ventolin HFN] 1 inh PO QID 05/29/18 Baclofen 20 mg PO HS 05/29/18 Calcium Carbonate/Vitamin D3 1 tab PO QID 05/29/18 [Calcium 500 mg Chewable Tablet] Cholecalciferol (Vitamin D3) 1 cap PO DAILY 05/29/18 [Vitamin D3] Dexamethasone [Decadron] 4 mg PO 05/29/18 Esomeprazole Magnesium [Nexium] 40 mg PO BID 05/29/18 Guaifenesin [Guaifenesin ER] 1,200 mg PO BID 05/29/18 Methadone HCl 5 mg PO BID 05/29/18 Oxycodone HCl [Roxicodone] 30 mg PO QID 05/29/18 Sucralfate [Carafate] 1 gm PO AC15 05/29/18 Venlafaxine HCl [Venlafaxine HCl 75 mg PO DAILY 05/29/18 ER] levETIRAcetam [Keppra] 1,000 mg PO BID 05/29/18 Ciprofloxacin HCl [Cipro] 500 mg PO BID #14 tablet 05/30/18 Procedures this Visit: None Allergies/Adverse Reactions: Allergies Allergy/AdvReac Type Severity Reaction Status Date / Time amoxicillin [Amoxicillin] Allergy Severe Face Verified 05/30/18 11:20 Swelling sulfamethoxazole AdvReac Mild Nausea/Vomi Verified 05/30/18 11:20 [From ] ting trimethoprim [From ] AdvReac Mild Nausea/Vomi Verified 05/30/18 11:20 ting Discharge Summary: Potassium replaced during the night, patient medicated with cipro IV for UTI. K up to 3.6 this morning. Patient sitting on side of bed eating lunch with no complaints at discharge. Questions answered, plan of care discussed. Rx for cipro to [facility]. Continue all current medications and chemo treatments. Patient instructed to keep appointment with oncologist this week.
[2018-06-01] MEDS ORDERED: fentaNYL 12 MCG 1 EACH PATCH.TD72 TD SCH (09:00)
== END 2018-05-30 13:40 | disposition home or self-care (01) ==
LOC: ED 17:42 → SOUTH 21:44
PROVIDERS: ADMIT Physician Assistant Medical; ATTEND Emergency Medicine
DX: E87.6 Hypokalemia (principal); N30.00 Acute cystitis without hematuria; C64.9 Malignant neoplasm of unspecified kidney, except renal pelvis; R11.2 Nausea with vomiting, unspecified
CPT/HCPCS: 71045; 80048; 80053; 81002; 85025; 87086; 87186; 94640; 94760; G0378; J0744; J2405; J3480; J3490; J7030; 96365; 96366; 96367; 96375; 96376; 99217; 99218; 99284

== ENCOUNTER 2018-06-13 13:29 | Outpatient (CLI) | payer OTHER ==
[2018-06-13] MEDS ORDERED: 0.9 % SODIUM CHLORIDE 500 ML IV ONE ×2 (14:35→15:30)
[2018-06-13] MEDS: 0.9 % SODIUM CHLORIDE 500 ML IV ONE ×2 (14:39→14:49)
[2018-06-13] MEDS ORDERED: 0.9 % SODIUM CHLORIDE 1,000 ML IV ONE ×2 (14:41→15:37)
== END 2018-06-13 13:32 ==
LOC: OUT 13:29
PROVIDERS: ATTEND Family Medicine
DX: E86.0 Dehydration (principal)
CPT/HCPCS: 96360; 96361; J7030

== ENCOUNTER 2018-06-18 20:01 | Emergency (ER) | payer OTHER ==
--- NOTE | 2018-06-18 20:09 | ED Physician Documentation ---
General Adult - HISTORIAN Historian: patient - HPI Stated Complaint: "I am not sure - Just tired" Chief Complaint: Weakness Onset: hours (2) Timing: still present Severity: mild Further Comments: yes ([place] and after getting home "just felt off" - she currently denies any complaints. She has her pain pump although she is stating she did not take her xanax or nausea med and she feels she needs them both) Last known Well Code/Unknown Code: Unknown - ROS CONST: weakness EYES/ENT: denies: nasal drainage, nasal congestion CVS/RESP: cough GI/: none MS/SKIN/LYMPH: none NEURO/PSYCH: headache - PAST HX Past History: other (metastatic lung cancer ) Immunizations: UTD Allergies/Adverse Reactions: Allergies Allergy/AdvReac Type Severity Reaction Status Date / Time amoxicillin [Amoxicillin] Allergy Severe Face Verified 06/18/18 21:35 Swelling sulfamethoxazole AdvReac Mild Nausea/Vomi Verified 06/18/18 21:35 [From Septra] ting trimethoprim [From Janra] AdvReac Mild Nausea/Vomi Verified 06/18/18 21:35 ting Home Medications: Ambulatory Orders Medication Instructions Recorded fentaNYL 12 MCG [Duragesic] 1 each TD Q72 MDD 75mcg 12/22/17 Promethazine HCl [Phenergan] 25 mg PO Q6 PRN #30 tablet 03/09/18 Alprazolam [Xanax] 0.25 mg PO TID PRN 04/28/18 Furosemide [Lasix] 20 mg PO DAILY PRN 04/28/18 Gabapentin [Neurontin] 300 mg PO HS 04/28/18 Ondansetron HCl Rapdis [Zofran Odt] 4 mg PO Q4H PRN 04/28/18 Potassium Chloride [Klor-Con 10] 10 meq PO DAILY PRN 04/28/18 Rivaroxaban [Xarelto] 10 mg PO 1700 04/28/18 Albuterol Sulfate [Ventolin HFN] 1 inh PO QID 05/29/18 Baclofen 20 mg PO HS 05/29/18 Calcium Carbonate/Vitamin D3 1 tab PO QID 05/29/18 [Calcium 500 mg Chewable Tablet] Cholecalciferol (Vitamin D3) 1 cap PO DAILY 05/29/18 [Vitamin D3] Dexamethasone [Decadron] 4 mg PO 05/29/18 Esomeprazole Magnesium [Nexium] 40 mg PO BID 05/29/18 Guaifenesin [Guaifenesin ER] 1,200 mg PO BID 05/29/18 Methadone HCl 5 mg PO BID 05/29/18 Oxycodone HCl [Roxicodone] 30 mg PO QID 05/29/18 Sucralfate [Carafate] 1 gm PO AC15 05/29/18 Venlafaxine HCl [Venlafaxine HCl 75 mg PO DAILY 05/29/18 ER] levETIRAcetam [Keppra] 1,000 mg PO BID 05/29/18 Ciprofloxacin HCl [Cipro] 500 mg PO BID #14 tablet 05/30/18 - SOCIAL HX Smoking History: non-smoker Alcohol Use: none Drug Use: none - FAMILY HX Family History: No - VITAL SIGNS Vital Signs: Vital Signs Temp Pulse Resp BP Pulse Ox 117/53 05/30/18 12:09 - REVIEWED ASSESSMENTS Nursing Assessment Reviewed: Yes Vitals Reviewed: Yes Progress - Progress Progress: 2154: wheezing improved post neb- discussed current findings awaiting CMP to d iscuss discharge DG 2199: discussed case with Dr Bobo and agreeable to plan DG ED Results Lab/Radiology - Radiology Radiology Impressions: Portable chest History: Shortness of breath Findings: Scattered bilateral pulmonary nodules, thoracic and lumbar fusion hardware, and right atrial Port-A-Cath are unchanged since 05/29/2018. Mild bilateral interstitial infiltrate or edema may be present. This has potentially increased since the prior exam. Impression: 1. Lung metastases and postoperative changes are again noted. 2. Potentially new interstitial infiltrate or edema. Electronically signed on Jun 18, 2018 9:18:54 PM [employer]EN [employer] P[employer]ER by: Randell Perez General Adult Physical Exam - PHYSICAL EXAM GENERAL APPEARANCE: no distress EENT: eye inspection normal, pharynx normal, dry mucous membranes NECK: normal inspection RESPIRATORY: no resp distress, wheezes (RUL and NICOLAS ) CVS: reg rate & rhythm, heart sounds normal ABDOMEN: soft, normal bowel sounds, no distension SKIN: warm/dry, normal color EXTREMITIES: non-tender, normal range of motion, no evidence of injury, no edema NEURO: oriented X3 Discharge Clincal Impression: Pneumonia Qualifiers: Pneumonia type: due to unspecified organism Laterality: bilateral Lung location: unspecified part of lung Qualified Code(s): J18.9 - Pneumonia, uns pecified organism Referrals: Maritza Monterroso MD [Primary Care Provider] - 2 Days Additional Instructions: 1. Doxycycline 100 mg Take 1 by mouth twice per day 2. Medrol Dose pack 4 mg take as directed 3. Follow up with PCP in 2-4 days 4. Return to ER for any new concerns Condition: Stable Disposition: 01 HOME, SELF-CARE Decision to Admit: NO Date of Decison to Admit: 06/18/18 Decision Time: 22:23
[2018-06-18] MEDS ORDERED: 0.9 % SODIUM CHLORIDE 1,000 ML IV ONE (20:29)
[2018-06-18] MEDS ORDERED: ONDANSETRON HCL/PF 4 MG/ 2ML VIAL IVP ONE (20:29)
[2018-06-18] MEDS ORDERED: ALPRAZOLAM 0.5 MG TABLET PO ONE (20:30)
[2018-06-18] MEDS ORDERED: IPRATROPIUM/ALBUTEROL SULFATE 3 ML AMPUL.NEB NEB ONE (21:41)
[2018-06-18] MEDS ORDERED: DOXYCYCLINE 100 MG CAPSULE PO ONE (21:56)
--- NOTE | 2018-06-18 22:47 | Diagnostic Imaging Report ---
RENARD ROBERT [facility] [address] [facility] [address] [place], [place]. [address] Report Submission Date: Jun 18, 2018 9:18:54 PM DIRECTOR OF RECREATION THERAPY Patient Study Name: SITA MEIER Date: Jun 18, 2018 8:33:07 PM DIRECTOR OF RECREATION THERAPY Modality Type: DX Gender: F Description: CHEST 1VIEW : 63 Institution: [facility] Physician: RENARD ROBERT Portable chest History: Shortness of breath Findings: Scattered bilateral pulmonary nodules, thoracic and lumbar fusion hardware, and right atrial Port-A-Cath are unchanged since 05/29/2018. Mild bilateral interstitial infiltrate or edema may be present. This has potentially increased since the prior exam. Impression: 1. Lung metastases and postoperative changes are again noted. 2. Potentially new interstitial infiltrate or edema. Electronically signed on Jun 18, 2018 9:18:54 PM DIRECTOR OF RECREATION THERAPY by: Randell HERCULES
[2018-06-18 23:11] VITALS: BP 117/53
[2018-06-19 08:11] LABS: BASOPHILS % 0.3 (0.0-1.5); EOSINOPHILS % 1.8 % (0.0-6.8); MONOCYTES % 6.1 % (0.0-11.0); NEUTROPHILS # 5.4 # k/uL (1.4-7.7)
[2018-06-19 08:12] LABS: eGFR (Non-African) > 60
== END 2018-06-18 22:50 | disposition home or self-care (01) ==
LOC: ED 20:01
DX: J18.9 Pneumonia, unspecified organism (principal); C34.90 Malignant neoplasm of unspecified part of unspecified bronchus or lung
CPT/HCPCS: 36415; 71045; 80053; 85025; 94640; 99283; 99284; J2405; J7030

== ENCOUNTER 2018-08-10 20:14 | Emergency (ER) | payer OTHER ==
--- NOTE | 2018-08-10 20:45 | ED Physician Documentation ---
Dyspnea - HISTORIAN Historian: patient - HPI Stated Complaint: shortness of breath, bodyaches Chief Complaint: Dyspnea Additional Information: Patient presents to the ED with a 1 day history of increasing shortness of breath and bodyaches. Patient's was admitted this morning with Influenza A. Patient is Stage IV Renal Cell carcinoma and currently on palliative care taking Sutent. She presented to ED with Sa02 87% on room air. Patient was placed on 2 liters oxygen improved Sa02 to 94%. Onset: hours (12) Duration: continues in ED Severity: moderate Associated Symptoms: chills - ROS CONST: weakness EYES/ENT: none GI/: denies: vomiting, nausea NEURO/PSYCH: headache MS/SKIN/LYMPH: muscle aches - PAST HX Lung Disease: COPD PE Risk Factors: cancer Surgeries/Procedures: none Other History: none Allergies/Adverse Reactions: Allergies Allergy/AdvReac Type Severity Reaction Status Date / Time amoxicillin [Amoxicillin] Allergy Severe Face Verified 08/10/18 20:44 Swelling sulfamethoxazole AdvReac Mild Nausea/Vomi Verified 08/10/18 20:44 [From ] ting trimethoprim [From Janra] AdvReac Mild Nausea/Vomi Verified 08/10/18 20:44 ting Home Medications: Ambulatory Orders Medication Instructions Recorded fentaNYL 12 MCG [Duragesic] 1 each TD Q72 MDD 75mcg 12/22/17 Promethazine HCl [Phenergan] 25 mg PO Q6 PRN #30 tablet 03/09/18 Alprazolam [Xanax] 0.25 mg PO TID PRN 04/28/18 Furosemide [Lasix] 20 mg PO DAILY PRN 04/28/18 Gabapentin [Neurontin] 300 mg PO HS 04/28/18 Ondansetron HCl Rapdis [Zofran Odt] 4 mg PO Q4H PRN 04/28/18 Potassium Chloride [Klor-Con 10] 10 meq PO DAILY PRN 04/28/18 Rivaroxaban [Xarelto] 10 mg PO 1700 04/28/18 Albuterol Sulfate [Ventolin HFN] 1 inh PO QID 05/29/18 Baclofen 20 mg PO HS 05/29/18 Calcium Carbonate/Vitamin D3 1 tab PO QID 05/29/18 [Calcium 500 mg Chewable Tablet] Cholecalciferol (Vitamin D3) 1 cap PO DAILY 05/29/18 [Vitamin D3] Dexamethasone [Decadron] 4 mg PO 05/29/18 Esomeprazole Magnesium [Nexium] 40 mg PO BID 05/29/18 Guaifenesin [Guaifenesin ER] 1,200 mg PO BID 05/29/18 Methadone HCl 5 mg PO BID 05/29/18 Oxycodone HCl [Roxicodone] 30 mg PO QID 05/29/18 Sucralfate [Carafate] 1 gm PO AC15 05/29/18 Venlafaxine HCl [Venlafaxine HCl 75 mg PO DAILY 05/29/18 ER] levETIRAcetam [Keppra] 1,000 mg PO BID 05/29/18 Ciprofloxacin HCl [Cipro] 500 mg PO BID #14 tablet 05/30/18 - SOCIAL HX Smoking History: cigarettes, greater than 1 pack/day Alcohol Use: none Drug Use: none - FAMILY HX Family History: none - VITAL SIGNS Vital Signs: Vital Signs Temp Pulse Resp BP Pulse Ox 117/53 06/18/18 22:50 - REVIEWED ASSESSMENTS Nursing Assessment Reviewed: Yes Vitals Reviewed: Yes Progress - Progress Progress: [address] Siddiqi, he agrees with admission ED Results Lab/Radiology - Radiology Radiology Impressions: Report Submission Date: Aug 10, 2018 9:41:51 PM CDT Patient Study Name: SITA MEIER Date: Aug 10, 2018 8:51:54 PM CDT Modality Type: DX Gender: F Description: CHEST 2VIEW : 63 Institution: [facility] Physician: PEEWEE KNOTT Chest PA and lateral views Clinical history: Dyspnea Prior study of June 18, 2018 Right mediport catheter tip is in the right atrium. Possibly multiple pulmonary nodules in both lungs more pronounced in the right lower lung with right pleural effusion are again seen appear to be more pronounced as compared to the previous study of June 18, 2018. Hardware in the mid and upper thoracic spine with hardware in the upper lumbar spine. Mild cardiomegaly with atherosclerotic thoracic aorta. Impression: Interval increase of the pulmonary nodules in both lung wright and right pleural effusion since the previous study of June 18, 2018 Pulmonary metastases Right mediport catheter tip is in the right atrium Hardware in the spine as before Electronically signed on Aug 10, 2018 9:41:51 PM CDT by: César Ghosh Dyspnea Physical Exam - EXAM General Appearance: no acute distress, alert EENT: NIMO Respiratory: no resp. distress, decreased air movement CVS: reg. rate & rhythm Abdomen: non-tender, no distention Skin: color nml Extremities: non-tender Neuro/Psych: oriented x3 Discharge Clincal Impression: Influenza B Metastatic renal cell carcinoma Qualifiers: Laterality: right Qualified Code(s): C64.1 - Malignant neoplasm of right kidney, except renal pelvis Pneumonia Qualifiers: Pneumonia type: due to other aerobic Gram-negative bacteria Laterality: bilateral Lung location: lower lobe of lung Qualified Code(s): J15.6 - Pneumonia due to other Gram-negative bacteria Referrals: Maritza Monterroso MD [Primary Care Provider] - 2 Days Condition: Stable Disposition: ADMITTED INPATIENT Decision to Admit: [id number] Date of Decison to Admit: 08/10/18 Decision Time: 21:57
[2018-08-10 21:19] LABS: MEAN CORPUSCULAR HEMOGLOBIN 28.1 pg (28.0-34.0)
[2018-08-10 21:34] LABS: eGFR (Non-African) > 60
[2018-08-10] MEDS: ONDANSETRON HCL/PF 4 MG/ 2ML VIAL IVP ONE (21:46)
[2018-08-10] MEDS: ONDANSETRON HCL/PF 4 MG/ 2ML VIAL ONE (21:46)
[2018-08-10] MEDS: 0.9 % SODIUM CHLORIDE 1,000 ML IV ONE (21:46)
[2018-08-10] MEDS: OSELTAMIVIR PHOSPHATE 75 MG CAPSULE PO ONE (21:47)
[2018-08-10 21:53] VITALS: BP 111/65
[2018-08-10 22:58] LABS: APPEARANCE,URINE CLOUDY (CLEAR); COLOR,URINE YELLOW (YELLOW); OCCULT BLOOD,URINE 1+ (NEGATIVE)
[2018-08-10 23:00] LABS: AMORPHOUS SEDIMENT,UR FEW (NEGATIVE)
[2018-08-10 23:12] LABS: MONOCYTES % 5 % (0-11); SEGMENTED NEUTROPHILS % 80 % (39-79)
[2018-08-10 23:13] LABS: ANISOCYTOSIS 2+ (NEGATIVE); HYPOCHROMASIA 2+ (NEGATIVE); PLT EST. EST. AGREES W/PLT CT
[2018-08-11] MEDS ORDERED: ACETAMINOPHEN 325 MG TABLET PO SCH (01:02)
--- NOTE | 2018-08-11 05:46 | Diagnostic Imaging Report ---
PEEWEE KNOTT [facility] [address] [facility] [address] [place], [place]. [address] Report Submission Date: Aug 10, 2018 9:41:51 PM CDT Patient Study Name: SITA MEIER Date: Aug 10, 2018 8:51:54 PM CDT Modality Type: DX Gender: F Description: CHEST 2VIEW : 63 Institution: [facility] Physician: PEEWEE KNOTT Chest PA and lateral views Clinical history: Dyspnea Prior study of June 18, 2018 Right mediport catheter tip is in the right atrium. Possibly multiple pulmonary nodules in both lungs more pronounced in the right lower lung with right pleural effusion are again seen appear to be more pronounced as compared to the previous study of June 18, 2018. Hardware in the mid and upper thoracic spine with hardware in the upper lumbar spine. Mild cardiomegaly with atherosclerotic thoracic aorta. Impression: Interval increase of the pulmonary nodules in both lung wright and right pleural effusion since the previous study of June 18, 2018 Pulmonary metastases Right mediport catheter tip is in the right atrium Hardware in the spine as before Electronically signed on Aug 10, 2018 9:41:51 PM CDT by: César HERCULES
== END 2018-08-10 22:08 | disposition other institution (70) ==
LOC: ED 20:14
DX: J11.08 Influenza due to unidentified influenza virus with specified pneumonia (principal); J15.6 Pneumonia due to other Gram-negative bacteria; C64.1 Malignant neoplasm of right kidney, except renal pelvis; Z72.0 Tobacco use
CPT/HCPCS: 36415; 71046; 80053; 81002; 83605; 85025; 87040; 87086; 87400; 96374; 99285; J2405; J7030; S1016

== ENCOUNTER 2018-08-10 22:10 | Inpatient (IN) | payer OTHER ==
[2018-08-10] MEDS ORDERED: AZITHROMYCIN 500 MG in 0.9 % SODIUM CHLORIDE 250 ML IV ONE (22:27)
[2018-08-10] MEDS ORDERED: MAG HYDROX/ALUMINUM HYD/SIMETH 30 ML UDC PO PRN (22:36)
[2018-08-10 22:41] VITALS: BMI 25.8
[2018-08-10] MEDS ORDERED: BACLOFEN 20 MG PO SCH (22:45)
[2018-08-10] MEDS ORDERED: 0.9 % SODIUM CHLORIDE 250 ML IV ONE (22:48)
[2018-08-10] MEDS ORDERED: BACLOFEN 10 MG TABLET PO ONE (22:49)
[2018-08-10] MEDS ORDERED: AZITHROMYCIN 500 MG VIAL IV ONE (22:49)
[2018-08-10] MEDS: PATIENT OWN MED 1 EACH EACH PO SCH (23:20)
[2018-08-11] MEDS: ACETAMINOPHEN 325 MG TABLET PO PRN ×2 (01:33→15:37)
[2018-08-11] MEDS: IPRATROPIUM/ALBUTEROL SULFATE 3 ML AMPUL.NEB NEB SCH ×3 (06:15→20:42)
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
[2018-08-11 07:53] LABS: BASOPHILS % 0.6 (0.0-1.5); MEAN CORPUSCULAR HEMOGLOBIN 27.8 pg (28.0-34.0); MONOCYTES % 3.3 % (0.0-11.0); NEUTROPHILS # 16.6 # k/uL (1.4-7.7)
[2018-08-11] MEDS ORDERED: FLUoxetine HCL 10 MG CAPSULE PO ONE (08:36)
[2018-08-11] MEDS: 0.9 % SODIUM CHLORIDE 1,000 ML IV SCH ×2 (08:57→22:09)
[2018-08-11] MEDS: DOCUSATE SODIUM 100 MG CAPSULE PO SCH ×2 (08:57→20:30)
[2018-08-11] MEDS: OSELTAMIVIR PHOSPHATE 75 MG CAPSULE PO SCH ×2 (08:58→20:30)
[2018-08-11] MEDS: FLUoxetine HCL 10 MG CAPSULE PO SCH (08:58)
[2018-08-11] MEDS ORDERED: ALPRAZolam 0.5 MG TABLET PO PRN (09:00)
[2018-08-11] MEDS ORDERED: levETIRAcetam 500 MG TABLET PO SCH (09:00)
[2018-08-11] MEDS: ONDANSETRON HCL/PF 4 MG/ 2ML VIAL IVP PRN (12:19)
[2018-08-11] MEDS: RIVAROXABAN 10 MG TABLET PO SCH (17:07)
[2018-08-11] MEDS: BACLOFEN 10 MG TABLET PO SCH (20:30)
[2018-08-11] MEDS: GABAPENTIN 300 MG CAPSULE PO SCH (20:30)
[2018-08-11] MEDS: PATIENT OWN MED 1 EACH EACH PO SCH (20:30)
[2018-08-12 06:22] LABS: MEAN CORPUSCULAR HEMOGLOBIN 27.8 pg (28.0-34.0)
[2018-08-12] MEDS: IPRATROPIUM/ALBUTEROL SULFATE 3 ML AMPUL.NEB NEB SCH ×3 (06:23→22:30)
[2018-08-12] MEDS: 0.9 % SODIUM CHLORIDE 1,000 ML IV SCH ×3 (06:27→18:53)
[2018-08-12 06:33] LABS: eGFR (Non-African) > 60
--- NOTE | 2018-08-12 08:25 | Inpatient Progress Note ---
Subjective - Required Recertification Statement I anticipate X number of days because-include discharge plan: 1 - Review of Systems Subjective: Patient has some nausea today. Still coughing. Very groggy. She NOR her can tell us what meds she takes at home though the oncologist list methadone, marinol, dilaudid pump as home meds. Currently she has her dilaudid pump only. Objective - Exam Vitals and I&O: Vital Signs Temp 98.0 F 08/12/18 05:35 Pulse 76 08/12/18 05:35 Resp 16 08/12/18 05:35 BP 132/64 08/12/18 05:35 Pulse Ox 94 08/12/18 05:35 Intake & Output 08/11/18 08/11/18 08/12/18 11:59 23:59 11:59 Intake Total 600 370 240 Output Total 600 850 500 Balance 0 -480 -260 Intake: Oral 600 370 240 Output: Urine 600 850 500 Other: Voiding Method Indwelling Catheter Indwelling Catheter # Bowel Movements 0 General: Alert, Oriented to Person, Oriented to Place, Oriented to Time, Cooperative (Though groggy. Spills her apple juice all over her before vomiting.) Lungs: Rhonchi Cardiovascular: Regular rate - Results Results: Laboratory Results WBC 11.10 K/ul (4.00-12.00) 08/12/18 05:10 RBC 3.30 M/ul (3.90-5.20) L 08/12/18 05:10 Hgb 9.2 g/dL (12.0-16.0) L 08/12/18 05:10 Hct 28.8 % (34.5-46.5) L 08/12/18 05:10 MCV 87.0 fl (80.0-100.0) 08/12/18 05:10 MCH 27.8 pg (28.0-34.0) L 08/12/18 05:10 MCHC 31.9 g/dL (30.0-36.0) 08/12/18 05:10 RDW 17.2 % (11.3-14.3) H 08/12/18 05:10 Plt Count 136 K/mm3 (130-400) 08/12/18 05:10 Neut % (Auto) 90.8 % (39.0-79.0) H 08/11/18 06:00 Lymph % (Auto) 4.3 % (16.0-50.0) L 08/11/18 06:00 [place] % (Auto) 3.3 % (0.0-11.0) 08/11/18 06:00 Eos % (Auto) 1.0 % (0.0-6.8) 08/11/18 06:00 Baso % (Auto) 0.6 (0.0-1.5) 08/11/18 06:00 Neut # (Auto) 16.6 # k/uL (1.4-7.7) H 08/11/18 06:00 Lymph # (Auto) 0.8 # k/uL (0.6-4.0) 08/11/18 06:00 [place] # (Auto) 0.6 # k/uL (0.0-0.9) 08/11/18 06:00 Eos # (Auto) 0.2 # k/uL (0.0-0.6) 08/11/18 06:00 Baso # (Auto) 0.1 # k/uL (0.0-0.5) 08/11/18 06:00 Sodium 139 mmol/L (136-145) 08/12/18 05:10 Potassium 3.8 mmol/L (3.5-5.1) 08/12/18 05:10 Chloride 112 mmol/L (98-107) H 08/12/18 05:10 Carbon Dioxide 26 mmol/L (22-30) 08/12/18 05:10 BUN 9 mg/dL (7-17) 08/12/18 05:10 Creatinine 0.73 mg/dL (0.52-1.04) 08/12/18 05:10 Estimated Creat Clear 118 08/12/18 05:10 Est GFR ( Amer) > 60 (60-) 08/12/18 05:10 Est GFR (Non-Af Amer) > 60 (60-) 08/12/18 05:10 Glucose 81 mg/dL (74-106) 08/12/18 05:10 Calcium 6.9 mg/dL (8.4-10.2) L 08/12/18 05:10 Assessment/Plan - Assessment/Plan (1) Influenza B Status: Acute Current Visit: No Plan: Continue tamiflu. (2) Pneumonia Status: Acute Current Visit: No Qualifiers: Pneumonia type: due to unspecified organism Laterality: unspecified laterality Lung location: unspecified part of lung Qualified Code(s): J18.9 - Pneumonia, unspecified organism Plan: STart incentive spirometer. Continue IVF and IV antibiotics. (3) Metastatic renal cell carcinoma Status: Chronic Current Visit: No Qualifiers: Laterality: unspecified laterality Qualified Code(s): C64.9 - Malignant neoplasm of unspecified kidney, except renal pelvis (4) Neurogenic bladder Status: Chronic Current Visit: No
--- NOTE | 2018-08-12 08:30 | Diagnostic Imaging Report ---
<p>Your browser does not support iframes.</p> GARETH KAM [facility] [id number] [facility] [address] [place], [place]. [address] Report Submission Date: Aug 12, 2018 7:03:08 AM CDT Patient Study Name: SITA MEIER Date: Aug 12, 2018 6:30:03 AM CDT Modality Type: DX Gender: F Description: CHEST 1VIEW : 63 Institution: [facility] Physician: GARETH KAM HISTORY: 53-year-old female with cough and shortness of breath, history of metastatic renal cell carcinoma. COMPARISON: Chest x-rays dated 08/10/2018 and 06/18/2018 TECHNIQUE: Single portable AP view of the chest was performed. FINDINGS: Postoperative changes of the thoracic and lumbar spine are re- identified. Right chest Port-A-Cath is re-identified. There is increased opacity in the right lung base. There is diffuse prominence of the interstitial markings bilaterally. There are hazy nodules throughout both lungs, more so on the left. No pneumothorax. The heart is borderline enlarged. IMPRESSION: 1. Hazy nodules re-identified in both lungs, consistent with pulmonary metastatic disease. 2. Increased opacity in the right lung base may represent atelectasis or pneumonia. 3. Diffuse prominence of the interstitial markings may be due to CHF or pulmonary fibrosis. 4. Postoperative changes of the thoracic and lumbar spine. Electronically signed on Aug 12, 2018 7:03:08 AM CDT by: Luis Fernando HERCULES
[2018-08-12] MEDS: ONDANSETRON HCL/PF 4 MG/ 2ML VIAL IVP PRN (08:36)
[2018-08-12] MEDS: FLUoxetine HCL 10 MG CAPSULE PO SCH (09:30)
[2018-08-12] MEDS: OSELTAMIVIR PHOSPHATE 75 MG CAPSULE PO SCH ×2 (09:30→20:41)
[2018-08-12] MEDS: DOCUSATE SODIUM 100 MG CAPSULE PO SCH ×2 (09:30→20:40)
[2018-08-12] MEDS: RIVAROXABAN 10 MG TABLET PO SCH (17:45)
[2018-08-12] MEDS: BACLOFEN 10 MG TABLET PO SCH (20:40)
[2018-08-12] MEDS: GABAPENTIN 300 MG CAPSULE PO SCH (20:41)
[2018-08-12] MEDS: PATIENT OWN MED 1 EACH EACH PO SCH (20:51)
[2018-08-13] MEDS: 0.9 % SODIUM CHLORIDE 1,000 ML IV SCH ×2 (02:26→05:09)
[2018-08-13] MEDS: IPRATROPIUM/ALBUTEROL SULFATE 3 ML AMPUL.NEB NEB SCH (04:58)
[2018-08-13 07:10] LABS: eGFR (Non-African) > 60
[2018-08-13 07:18] LABS: SEGMENTED NEUTROPHILS % 97 % (39-79)
[2018-08-13 07:19] LABS: PLT EST. EST. AGREES W/PLT CT
[2018-08-13] MEDS: OSELTAMIVIR PHOSPHATE 75 MG CAPSULE PO SCH (08:50)
[2018-08-13] MEDS: DOCUSATE SODIUM 100 MG CAPSULE PO SCH (08:50)
[2018-08-13] MEDS: FLUoxetine HCL 10 MG CAPSULE PO SCH (08:50)
--- NOTE | 2018-08-13 10:28 | Inpatient Progress Note ---
Subjective - Required Recertification Statement I anticipate X number of days because-include discharge plan: 3 days - Review of Systems Events since last encounter: Covering for Dr. Monterroso 53yo white female with known metastatic renal cell carcinoma. Has been followed by Dr Kruger at the [facility]. She is currently on palliative care. She is receiving some sort of chemo therapy but family is not sure exactly what it is. Patient was started on a new chemotherapy agent about 10 days ago. Has not done well since that time. She has been more lethargic an is having difficulties with swallowing. Was Admitted on August 10 after she was not doing well at home. At that time her caregiver (her ) was hospitalized for influenza A. Patient did test positive for influenza B and was noted to have a right lower lobe infiltrate versus atelectasis. Patient was mildly hypoxic with an SaO2 in the upper 80s on room air. Patient was subsequently admitted to the hospital for further care and evaluation. Patient was started on nebulization treatments, Levaquin, and azithromycin. Patient was also started on Tamiflu.Blood cultures were drawn. Preliminary report on the blood cultures show that two bottles are growing gram-positive cocci in chains. Specific ID and sensitivity has not been completed. A urine culture was done several days prior to admission which showed mixed normal kiersten with 50,000-100,000 of coagulates negative Staphylococcus. Sensitivity was not done. On admission's patient WBC count was 18,300. Yesterday it had dropped to 11,100 and today is 10,600. Patient has 90-97% segs. Hemoglobin and hematocrit remain stable. Today on evaluation patient states she would like to go home but is not sure if she's ready to do so. Patient does seem to be lethargic which she was somewhat yesterday but does answer questions appropriately. [place] coma scale is 15/15. Patient stated her pain seemed to be well controlled currently with her hydromorphone pump. Patient states that her breathing seem to be doing fairly well. Patient is still on 2 L of oxygen in order to maintain her SaO2 greater than 92%. General: Chills. Denies: Night Sweats HEENT: Denies: Head Aches Cardiovascular: Denies: Chest Pain, Palpitations Gastrointestinal: Nausea, Abdominal Pain. Denies: Vomiting Objective - Exam Vitals and I&O: Vital Signs Temp 97.6 F 08/13/18 09:41 Pulse 88 08/13/18 09:41 Resp 20 08/13/18 09:41 BP 148/86 08/13/18 09:41 Pulse Ox 92 08/13/18 09:41 Intake & Output 08/12/18 08/12/18 08/13/18 11:59 23:59 11:59 Intake Total 344 202 2428 Output Total 500 850 500 Balance -260 70 660 Intake: IV 800 800 Right Forearm 800 800 Oral 240 120 360 Output: Urine 500 700 500 Emesis 150 Other: Voiding Method Toilet Indwelling Catheter Indwelling Catheter # Bowel Movements 0 General: Alert, Oriented to Person, Oriented to Place, Oriented to Time, Cooperative, No acute distress Neck: Supple, No JVD Lungs: Normal air movement, Speaks full Sentences, Rales (RRL) Cardiovascular: Regular rate, Normal S1, Normal S2, No murmurs, Gallops Abdomen: Soft, No tenderness, No masses, Decreased Bowel Sounds Skin: Normal, Warm Neurological: Normal speech, Strength Equal Bilat, Normal tone Psych/Mental Status: Mental status NL, Mood NL, Appropriate Affect, Intact Judgment - Results Results: Laboratory Results WBC 10.60 K/ul (4.00-12.00) 08/13/18 06:40 RBC 3.54 M/ul (3.90-5.20) L 08/13/18 06:40 Hgb 9.9 g/dL (12.0-16.0) L 08/13/18 06:40 Hct 31.3 % (34.5-46.5) L 08/13/18 06:40 MCV 88.0 fl (80.0-100.0) 08/13/18 06:40 MCH 28.0 pg (28.0-34.0) 08/13/18 06:40 MCHC 31.7 g/dL (30.0-36.0) 08/13/18 06:40 RDW 17.9 % (11.3-14.3) H 08/13/18 06:40 Plt Count 133 K/mm3 (130-400) 08/13/18 06:40 Neut % (Auto) 90.8 % (39.0-79.0) H 08/11/18 06:00 Lymph % (Auto) 4.3 % (16.0-50.0) L 08/11/18 06:00 [place] % (Auto) 3.3 % (0.0-11.0) 08/11/18 06:00 Eos % (Auto) 1.0 % (0.0-6.8) 08/11/18 06:00 Baso % (Auto) 0.6 (0.0-1.5) 08/11/18 06:00 Neut # (Auto) 16.6 # k/uL (1.4-7.7) H 08/11/18 06:00 Lymph # (Auto) 0.8 # k/uL (0.6-4.0) 08/11/18 06:00 [place] # (Auto) 0.6 # k/uL (0.0-0.9) 08/11/18 06:00 Eos # (Auto) 0.2 # k/uL (0.0-0.6) 08/11/18 06:00 Baso # (Auto) 0.1 # k/uL (0.0-0.5) 08/11/18 06:00 Seg Neutrophils % 97 % (39-79) H 08/13/18 06:40 Lymphocytes % 3 % (16-50) L 08/13/18 06:40 Platelet Estimate Est. agrees w/plt ct 08/13/18 06:40 RBC Morph Comment Normal (NORMAL) 08/13/18 06:40 Sodium 141 mmol/L (136-145) 08/13/18 06:40 Potassium 3.6 mmol/L (3.5-5.1) 08/13/18 06:40 Chloride 113 mmol/L (98-107) H 08/13/18 06:40 Carbon Dioxide 23 mmol/L (22-30) 08/13/18 06:40 BUN 7 mg/dL (7-17) 08/13/18 06:40 Creatinine 0.70 mg/dL (0.52-1.04) 08/13/18 06:40 Estimated Creat Clear 123 08/13/18 06:40 Est GFR ( Amer) > 60 (60-) 08/13/18 06:40 Est GFR (Non-Af Amer) > 60 (60-) 08/13/18 06:40 Glucose 70 mg/dL (74-106) L 08/13/18 06:40 Calcium 6.8 mg/dL (8.4-10.2) L 08/13/18 06:40 Assessment/Plan - Assessment/Plan (1) Pneumonia Status: Acute Current Visit: No Qualifiers: Pneumonia type: due to unspecified organism Laterality: unspecified laterality Lung location: unspecified part of lung Qualified Code(s): J18.9 - Pneumonia, unspecified organism Assessment: Blood cultures 2 bottles positive for gram positive cocci in chains. (2) Metastatic renal cell carcinoma Status: Chronic Current Visit: No Qualifiers: Laterality: unspecified laterality Qualified Code(s): C64.9 - Malignant neoplasm of unspecified kidney, except renal pelvis Assessment: metastatic to liver, lung and brain (3) Neurogenic bladder Status: Chronic Current Visit: No Assessment: chronic indwelling parry cath (4) Seizure Status: Chronic Current Visit: No Assessment: stable on home meds
--- NOTE | 2018-08-13 12:40 | Discharge Summary ---
Discharge Summary - Discharge Sumary Admission Date: 08/10/18 (Acute) Discharge Date: 08/13/18 (Transfered to [facility]) History of Present Illness: Patient presented to the ER after several days of feeling weak and body aches. Her mom was hospitalized last week with pneumonia. Her nephew who lives with them had influenza last week. And her is hospitalized with pneumonia and influenza. Patient has had a cough and mild SOB. She has renal cell CA metastatic to her lungs and spine. She is unable to walk due to this. ON admission, WBC were elevated and it was thought she had a pneumonia. Her influenza B test was positive. She will be admitted for IV hydration, IV antibioitics and tamiflu. Condition at Discharge: Stable Home Medications: Ambulatory Orders Medication Instructions Recorded [id number] 12 MCG [Duragesic] 1 each TD Q72 MDD 75mcg 12/22/17 Promethazine HCl [Phenergan] 25 mg PO Q6 PRN #30 tablet 03/09/18 Alprazolam [Xanax] 0.25 mg PO TID PRN 04/28/18 Furosemide [Lasix] 20 mg PO DAILY PRN 04/28/18 Gabapentin [Neurontin] 300 mg PO HS 04/28/18 Ondansetron HCl Rapdis [Zofran ODT] 4 mg PO Q4H PRN 04/28/18 Potassium Chloride [Klor-Con 10] 20 meq PO DAILY 04/28/18 Rivaroxaban [Xarelto] 10 mg PO 1700 04/28/18 Albuterol Sulfate [Ventolin HFN] 1 inh PO QID 05/29/18 Baclofen 20 mg PO HS 05/29/18 Calcium Carbonate/Vitamin D3 1 tab PO QID 05/29/18 [Calcium 500 mg Chewable Tablet] Cholecalciferol (Vitamin D3) 1 cap PO DAILY 05/29/18 [Vitamin D3] Dexamethasone [Decadron] 4 mg PO 05/29/18 Esomeprazole Magnesium [Nexium] 40 mg PO BID 05/29/18 Guaifenesin [Guaifenesin ER] 1,200 mg PO BID 05/29/18 Methadone HCl 5 mg PO BID 05/29/18 Oxycodone HCl [Roxicodone] 30 mg PO QID 05/29/18 Sucralfate [Carafate] 1 gm PO AC15 05/29/18 Venlafaxine HCl [Venlafaxine HCl 75 mg PO DAILY 05/29/18 ER] Ciprofloxacin HCl [Cipro] 500 mg PO BID #14 tablet 05/30/18 Oxybutynin Chloride [Ditropan Xl] 5 mg PO DAILY 08/10/18 Propranolol HCl [Inderal] 10 mg PO DAILY 08/10/18 Consultations this Visit: None Procedures this Visit: None Allergies/Adverse Reactions: Allergies Allergy/AdvReac Type Severity Reaction Status Date / Time amoxicillin [Amoxicillin] Allergy Severe Face Verified 08/11/18 04:55 Swelling sulfamethoxazole AdvReac Mild Nausea/Vomi Verified 08/11/18 04:55 [From ] ting trimethoprim [From ] AdvReac Mild Nausea/Vomi Verified 08/11/18 04:55 ting Discharge Summary: Covering for Dr. Monterroso 53yo white female with known metastatic renal cell carcinoma. Has been followed by Dr Najera at the [facility]. She is currently on palliative care. She is receiving some sort of chemo therapy but family is not sure exactly what it is. Patient was started on a new chemotherapy agent about 10 days ago. Has not done well since that time. She has been more lethargic an is having diffic ulties with swallowing. Was Admitted on August 10 after she was not doing well at home. At that time her caregiver (her ) was hospitalized for influenza A as well as several other members of her household. Patient did test positive for influenza B and was noted to have a right lower lobe infiltrate versus atelectasis. Patient was mildly hypoxic with an SaO2 in the upper 80s on room air. Her WBC was 18,300. Patient was subsequently admitted to the hospital for further care and evaluation. Patient was started on nebulization treatments, Levaquin, and azithromycin. Patient was also started on Tamiflu.Blood cultures were drawn. Preliminary report on the blood cultures show that two bottles are growing gram-positive cocci in chains. Specific ID and sensitivity has not been completed. A urine culture was done several days prior to admission which showed mixed normal kiersten with 50,000-100,000 of coagulates negative Staphylococcus. Sensitivity was not done. On admission's patient WBC count was 18,300. Yesterday it had dropped to 11,100 and today is 10,600. Patient has 90-97% segs. Hemoglobin and hematocrit remain stable. Today on evaluation patient states she would like to go home but is not sure if she's ready to do so. Patient does seem to be lethargic which she was somewhat yesterday but does answer questions appropriately. [place] coma scale is 15/15. Patient stated her pain seemed to be well controlled currently with her hydromorphone pump. Patient states that her breathing seem to be doing fairly well. Patient is still on 2 L of oxygen in order to maintain her SaO2 greater than 92%. After talking with patient and her they were informed that I did not feel that discharge was appropriate at this time. They state that if she needed to remain in the hospital they would like her transferred to [facility] for further care. - Final Diagnosis (1) Pneumonia Problems: Under treatment with Levaquin and azithromycin. @ blood culture bottles positive for gram positive cocci in chains, No ID or sensitivity done yet. (2) Metastatic renal cell carcinoma Problems: on pallative care, recently started new chemo therapy agent and has not been tolerating it well. (3) Neurogenic bladder Problems: chronic indwelling parry cath (4) Seizure Problems: stable on home meds
[2018-08-13] MEDS ORDERED: HYDROmorphone HCL/PF 1 MG/ML VIAL IVP SCH (13:00)
[2018-08-13 13:49] VITALS: BP 158/109
== END 2018-08-13 13:10 | disposition short-term general hospital (02) | DRG 194 ==
LOC: SOUTH 22:10
PROVIDERS: ADMIT Family Medicine; ATTEND Family Medicine
DX: J18.9 Pneumonia, unspecified organism (principal); C64.9 Malignant neoplasm of unspecified kidney, except renal pelvis; C79.51 Secondary malignant neoplasm of bone; J11.1 Influenza due to unidentified influenza virus with other respiratory manifestations; N31.9 Neuromuscular dysfunction of bladder, unspecified; R11.0 Nausea; R53.1 Weakness
CPT/HCPCS: 71045; 80048; 83605; 85025; 85027; 87040; J0456; J2405; J7030; J7050; 99222; 99231; 99232; 99238